=== PATIENT | female | born 2005 | race Caucasian/White ===

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

== ENCOUNTER 2025-01-27 14:16 | Emergency (ER) | payer BC, OTHER ==
[2025-01-27 14:40] VITALS: BP 121/71; PULSE 77; RESP 20; TEMP 97.5; O2SAT 100
[2025-01-27] MEDS ORDERED: Zofran 4 MG/2 ML VIAL ONE (15:07)
[2025-01-27] MEDS ORDERED: Sodium Chloride 0.9% 1000 ML 1,000 ML ONE (15:08)
[2025-01-27] MEDS: Sodium Chloride 0.9% 1000 ML 1,000 ML IV STA (15:10)
[2025-01-27] MEDS: Zofran 4 MG/2 ML VIAL IV ONE (15:11)
[2025-01-27 15:17] LABS: Absolute Neutrophil Ct (ANC) 5.41 x10^3/uL (1.56-6.13); BASOPHIL % 0.2 % (0.1-1.2); Basophil (Absolute #) 0.02 x10^3/uL (0.01-0.08); Eosinophil % 0.6 % (0.7-5.8); Eosinophil (Absolute #) 0.05 x10^3/uL (0.04-0.36); Hematocrit 34.5 % (34.1-44.9); Hemoglobin 11.9 g/dL (11.2-15.7); IMMATURE GRAN # 0.02 x10^3u/L (0.001-0.031); IMMATURE GRAN % 0.2 % (0.001-0.429); Lymphocyte (Absolute #) 2.74 x10^3/uL (1.18-3.74); Lymphocytes % 31.2 % (19.3-51.7); Mean Cell Volume 93.2 fL (79.4-94.8); Mean Corpuscular Hemoglobin 32.2 pg (25.6-32.2); Mean Corpuscular Hgb Concent. 34.5 g/dL (32.2-35.5); Mean Platelet Volume 9.2 fL (9.4-12.3); Monocyte (Absolute #) 0.54 x10^3/uL (0.24-0.86); Monocytes % 6.2 % (4.7-12.5); Neutrophil % 61.6 % (34.0-71.1); Platelet Count 258 x10^3/uL (182-369); Red Cell Distribution Width 12.8 % (11.7-14.4); White Blood Count 8.8 x10^3/uL (3.98-10.04)
[2025-01-27 15:26] LABS: Appearance Clear (Clear); Bacteria None Seen /HPF (None Seen); Bilirubin Negative (Negative); Blood Negative (Negative); Epithelial Cells None Seen /HPF (None Seen); Glucose, Urine Negative (Negative); Hyaline Casts NONE SEEN /LPF (0-2); Ketones Negative (Negative); Leukocyte Esterase Negative (Negative); Nitrite Negative (Negative); Ph 7.5 (4.6-8.0); Protein,Urine Dip Negative (Negative); RBC 0-2 /HPF (0-5); Urobilinogen 0.2 mg/dL (0.2); WBC 0-2 /HPF (0-5)
[2025-01-27 15:37] LABS: ALBUMIN 3.9 g/dL (3.5-5.0); ANION GAP 13.1 MEQ/L (5-15); BILIRUBIN,TOTAL 0.4 mg/dL (0.2-1.3); Calcium 8.9 mg/dL (8.4-10.2); Creatinine 1 0.51 mg/dL (0.52-1.04); EST GLOMERULAR FILTRATION RATE 137.8 ML/MIN; Potassium 4.3 mmol/L (3.5-5.1); Total Protein 6.4 g/dL (6.3-8.2)
--- NOTE | 2025-01-27 16:00 | ERPHSYRPT ---
- History of Present Illness Time Seen by Provider: 01/27/25 14:19 Source: patient, family Exam Limitations: no limitations Patient Subjective Stated Complaint: -16 weeks cramping Triage Nursing Assessment: Patient ambulated back to ED and transferred self to bed. Patient A+O X 3. Patient's skin pink, warm and dry. Patient states she is 16 weeks and has been having N/V for the past 2 weeks. Patient also complains of lower pelvic cramping intermittent 4/10 pain for past couple of days. Patient denies any vaginal bleeding. Physician History: 19-year-old 1 para 0 at 16 weeks gestation presented in the ER with complains of increasing nausea and vomiting for 1 week with associated pelvic cramping without any vaginal bleeding or discharge. Patient reports she did not have nausea in the first trimester but this is something new lately. Does have a history of recurrent UTIs. Allergies/Adverse Reactions: povidone-iodine [From Betadine] Allergy (Mild, Verified 01/27/25 14:26) soap [From Betadine] Allergy (Mild, Verified 01/27/25 14:26) Home Medications: Pnv No.95/Ferrous Fum/Folic AC [ Caplet] 1 tab PO DAILY 01/27/25 [History] Hx Tetanus, Diphtheria Vaccination/Date Given: Yes Hx Influenza Vaccination/Date Given: No Hx Pneumococcal Vaccination/Date Given: No Travel Risk - International Travel Have you traveled outside of the country in past 3 weeks: No - Emerging Infectious Disease Are you exhibiting symptoms associated with any current EIDs: No - Review of Systems Constitutional: Fatigue Eyes: No Symptoms Ears, Nose, & Throat: No Symptoms Respiratory: No Symptoms Cardiac: No Symptoms Abdominal/Gastrointestinal: Abdominal Pain, Nausea, Vomiting Musculoskeletal: No Symptoms Skin: No Symptoms Neurological: No Symptoms Endocrine: No Symptoms Hematologic/Lymphatic: No Symptoms - Past Medical History Pertinent Past Medical History: Yes Neurological History: Seizures ENT History: No Pertinent History Cardiac History: No Pertinent History Respiratory History: No Pertinent History Endocrine Medical History: Other Musculoskeletal History: Fractures, Other GI Medical History: GERD, Other History: Other Psycho-Social History: No Pertinent History Female Reproductive Disorders: No Pertinent History Other Medical History: kidney problems, seizures as a baby, possible history of stress fracture to left foot, bilateral damon splints, reflux of right ureter - Past Surgical History Past Surgical History: Yes Neuro Surgical History: No Pertinent History Cardiac: No Pertinent History Respiratory: No Pertinent History Gastrointestinal: No Pertinent History Genitourinary: No Pertinent History Musculoskeletal: No Pertinent History Female Surgical History: No Pertinent History Other Surgical History: EGD, colonscopy - Female History Hx Last Menstrual Period: October 01, 2024 Hx Now: Yes Gestational Age: 16 weeks - Social History Smoking Status: Never smoker Exposure to second hand smoke: No Drug Use: none - Social Determinants of Health Will the patient participate in the screening: Yes Do you worry about a steady place to live?: No Do you have any problems with any of the following?: No known problems In the past 12 months,have you had to go without utilities?: No Transportation Issues: No Has anyone in your support network made you feel unsafe?: No Have you or anyone in your house had to go w/o enough food: No - Nursing Vital Signs Nursing Vital Signs: Initial Vital Signs Temperature 97.5 F 01/27/25 14:27 Pulse Rate 77 01/27/25 14:27 Respiratory Rate 20 01/27/25 14:27 Blood Pressure 121/71 01/27/25 14:27 O2 Sat by Pulse Oximetry 100 01/27/25 14:27 Pain Scale Pain Intensity 4 - Physical Exam General Appearance: no apparent distress Eye Exam: PERRL/EOMI Ears, Nose, Throat Exam: normal ENT inspection Neck Exam: normal inspection, full range of motion Respiratory Exam: normal breath sounds, lungs clear Cardiovascular Exam: regular rate/rhythm, normal heart sounds Gastrointestinal/Abdomen Exam: soft, normal bowel sounds, No tenderness Back Exam: normal inspection, normal range of motion Extremity Exam: normal inspection, normal range of motion Neurologic Exam: alert, oriented x 3, cooperative, processing rep II-XII nml as tested Skin Exam: normal color SpO2 Interpretation: normal SpO2: 100 O2 Delivery: Room Air Ordered Tests: Active Orders 24 hr Category Date Time Status Heart Tones-ED STAT Care 01/27/25 14:53 Active OB FOLLOW UP PER [facility] [US] Stat Exams 01/27/25 15:41 Taken CBC W DIFF Stat Lab 01/27/25 14:54 Completed CMP Stat Lab 01/27/25 14:54 Completed UA W/RFX UR CULTURE Stat Lab 01/27/25 14:54 Completed Medication Summary Discontinued Medications Generic Name Dose Route Start Last Admin Trade Name Cinda PRN Reason Stop Dose Admin Sodium Chloride 1,000 mls @ 999 mls/hr 01/27/25 14:52 01/27/25 16:40 Sodium Chloride 0.9% 1000 Ml IV 01/27/25 15:52 Infused .Q1H1M STA Infusion Sodium Chloride Confirm 01/27/25 15:08 Sodium Chloride 0.9% 1000 Ml Administered 01/27/25 15:09 Dose 1,000 mls @ ud .ROUTE .STK-MED ONE Ondansetron HCl 4 mg 01/27/25 14:52 01/27/25 15:11 Ondansetron Hcl 4 Mg/2 Ml Vial IV 01/27/25 14:53 4 mg STAT ONE Administration Ondansetron HCl Confirm 01/27/25 15:07 Ondansetron Hcl 4 Mg/2 Ml Vial Administered 01/27/25 15:08 Dose 4 mg .ROUTE .STK-MED ONE Lab/Rad Data: Laboratory Result Diagrams 01/27/25 14:54 01/27/25 14:54 Laboratory Results 01/27/25 01/27/25 01/27/25 Range/Units 14:54 14:54 14:54 WBC 8.8 (3.98-10.04) x10^3/uL RBC 3.70 L (3.93-5.22) x10^6/uL Hgb 11.9 (11.2-15.7) g/dL Hct 34.5 (34.1-44.9) % MCV 93.2 (79.4-94.8) fL MCH 32.2 (25.6-32.2) pg MCHC 34.5 (32.2-35.5) g/dL RDW 12.8 (11.7-14.4) % Plt Count 258 (182-369) x10^3/uL MPV 9.2 L (9.4-12.3) fL Gran % 61.6 (34.0-71.1) % Immature Gran % (Auto) 0.2 (0.001-0.429) % Nucleat RBC Rel Count 0.0 (0.00-0.2) % Eos # (Auto) 0.05 (0.04-0.36) x10^3/uL Immature Gran # (Auto) 0.02 (0.001-0.031) x10^3u/L Absolute Lymphs (auto) 2.74 (1.18-3.74) x10^3/uL Absolute Monos (auto) 0.54 (0.24-0.86) x10^3/uL Absolute Nucleated RBC 0.00 (0.00-0.012) x10^3u/L Lymphocytes % 31.2 (19.3-51.7) % Monocytes % 6.2 (4.7-12.5) % Eosinophils % 0.6 L (0.7-5.8) % Basophils % 0.2 (0.1-1.2) % Absolute Granulocytes 5.41 (1.56-6.13) x10^3/uL Basophils # 0.02 (0.01-0.08) x10^3/uL Sodium 137 (135-145) mmol/L Potassium 4.3 (3.5-5.1) mmol/L Chloride 103 (98-107) mmol/L Carbon Dioxide 25 (22-30) mmol/L Anion Gap 13.1 (5-15) MEQ/L BUN 9 (7-17) mg/dL Creatinine 0.51 L (0.52-1.04) mg/dL Estimated GFR 137.8 ML/MIN Glucose 81 (74-106) mg/dL Calcium 8.9 (8.4-10.2) mg/dL Total Bilirubin 0.40 (0.2-1.3) mg/dL AST 22 (14-36) U/L ALT 9 (0-35) U/L Alkaline Phosphatase 61 (38-126) U/L Serum Total Protein 6.4 (6.3-8.2) g/dL Albumin 3.9 (3.5-5.0) g/dL Urine Color Yellow (Yellow) Urine Appearance Clear (Clear) Urine pH 7.5 (4.6-8.0) Ur Specific [place] 1.020 (1.005-1.030) Urine Protein Negative (Negative) Urine Glucose (UA) Negative (Negative) mg/dL Urine Ketones Negative (Negative) Urine Blood Negative (Negative) Urine Nitrite Negative (Negative) Urine Bilirubin Negative (Negative) Urine Urobilinogen 0.2 (0.2) mg/dL Ur Leukocyte Esterase Negative (Negative) U Hyaline Cast (Auto) NONE SEEN (0-2) /LPF Urine Microscopic RBC 0-2 (0-5) /HPF Urine Microscopic WBC 0-2 (0-5) /HPF Ur Epithelial Cells None Seen (None Seen) /HPF Urine Bacteria None Seen (None Seen) /HPF Urine Culture Reflexed NO (NO) - Progress Progress: improved, re-examined Air Movement: good Progress Note: 01/27/25 16:51 19-year-old 1 para 0 at 16 weeks gestation is evaluated in the ER for pelvic cramping with nausea and vomiting. She is given fluids and symptomatic treatment, on reevaluation she is feeling better. She is offered pain medication but she declined. Workup showed normal white count, chemistries unremarkable, no UTI. I have obtained ultrasound which per preliminary report has a heart tone of 144, close cervix 5.4 cm and no other acute findings. She does not have any peritoneal signs on repeated eval. No right lower quadrant tenderness. No guarding. Could have round ligament pain. She is advised to drink plenty of fluids, take Tylenol and Zofran as needed, outpatient ORDER DISPATCHER follow-up. Discussed signs symptoms of worsening needing return to ER which she seems understanding. Stable for discharge. Blood Culture(s) Obtained: No Antibiotics given: No Counseled pt/family regarding: lab results, diagnosis, need for follow-up, rad results Medical Desision Making - Independent Historian Additional History obtained from: Spouse - Diagnostic Testing Diagnostic test were ordered, analyzed, and reviewed by me: Yes Radiological Interpretation: Reviewed by me - Risk of complications The pt has a mod risk of morbidity or mortality based on: Need for prescription drug management - Departure Departure Disposition: Home Clinical Impression: Pelvic cramping in antepartum period, Nausea/vomiting in Condition: Stable Critical Care Time: No Referrals: ROBERTO CROWLEY MD [Primary Care Provider, [facility]] - Follow up with PCP 1 day Instructions: Morning sickness - ED discharge instructions Additional Instructions: Drink plenty of fluids. Take Tylenol/Zofran as needed. Follow-up with primary care/ORDER DISPATCHER for reevaluation. Return to ER for worsening cramping, vaginal bleeding discharge, intractable vomiting etc. Prescriptions: Ondansetron ODT 4 MG [Zofran Odt 4 mg] 1 ea PO QIDPRN PRN 10 Days #15 tablet PRN Reason: n/v
--- NOTE | 2025-01-27 21:33 | XRAY ---
Indication: Pelvic pain. Two-dimensional transabdominal limited OB ultrasound. Comparison: November 29, 2024 Again single viable intrauterine with heart rate 144 BPM. Anterior placenta without abruption/previa. Cervical length is 5.4 cm. Comment: Preliminary report was given.
== END 2025-01-27 17:04 | disposition home or self-care (01) ==
LOC: ED 14:16
DX: O21.9 Vomiting of pregnancy, unspecified (principal); Z3A.16 16 weeks gestation of pregnancy; R10.2 Pelvic and perineal pain; Z79.899 Other long term (current) drug therapy
CPT/HCPCS: 36415; 76816; 80053; 81001; 85025; 96361; 96374; 99284; J2405

== ENCOUNTER 2025-02-24 00:36 | Observation (INO) | payer BC, OTHER ==
[2025-02-24 01:04] VITALS: RESP 18
[2025-02-24] MEDS ORDERED: Lactated Ringers 1,000 ML IV ONE (01:04)
[2025-02-24 01:06] LABS: Appearance Clear (Clear); Bacteria Rare /HPF (None Seen); Bilirubin Negative (Negative); Blood Negative (Negative); Epithelial Cells Rare /HPF (None Seen); Glucose, Urine Negative (Negative); Hyaline Casts NONE SEEN /LPF (0-2); Ketones Trace (Negative); Leukocyte Esterase Negative (Negative); Nitrite Negative (Negative); Ph 6.5 (4.6-8.0); Protein,Urine Dip Negative (Negative); RBC 0-2 /HPF (0-5); Specific Gravity >=1.030 (1.005-1.030)
[2025-02-24 01:18] LABS: Amphetamine,Urine NEGATIVE (NEGATIVE); Barbiturate,Urine NEGATIVE (NEGATIVE); Benzodiazepine,Urine NEGATIVE (NEGATIVE); Cocaine,Urine NEGATIVE (NEGATIVE); Methadone,Urine NEGATIVE (NEGATIVE); Opiate,Urine NEGATIVE (NEGATIVE); PCP,Urine NEGATIVE (NEGATIVE); THC,Urine NEGATIVE (NEGATIVE)
[2025-02-24] MEDS ORDERED: Reglan 10 MG/2 ML ONE (01:22)
[2025-02-24] MEDS: Lactated Ringers 1,000 ML IV ONE (01:22)
[2025-02-24] MEDS: Reglan 10 MG/2 ML IV ONE (01:24)
[2025-02-24 02:21] VITALS: BP 113/57; PULSE 78; TEMP 98.1; O2SAT 100
--- NOTE | 2025-02-25 08:20 | PCM.SSS ---
History of Present Illness - Chief Complaint Chief Complaint: Nausea and vomiting in History of Present Illness: is a 19 year old female. Medications & Allergies Home Medications: Home Medication List Pnv No.95/Ferrous Fum/Folic AC [ Caplet] 1 tab PO DAILY 01/27/25 [History Confirmed 02/24/25] RX: Ondansetron ODT 4 MG [Zofran Odt 4 mg] 1 ea PO QIDPRN PRN 10 Days #15 tablet 01/27/25 [Rx Confirmed 02/24/25] Allergies/Adverse Reactions: Allergies Allergy/AdvReac Type Severity Reaction Status Date / Time povidone-iodine Allergy Mild Verified 01/27/25 14:26 [From Betadine] soap [From Betadine] Allergy Mild Verified 01/27/25 14:26 - Past Medical History Past Medical History: Yes Neurological History: Seizures ENT History: No Pertinent History Cardiac History: No Pertinent History Respiratory History: No Pertinent History Endocrine Medical History: Other Musculoskelatal History: Fractures, Other GI Medical History: GERD, Other History: Other Pyscho-Social History: No Pertinent History Reproductive Disorders: No Pertinent History Comment: kidney problems, seizures as a baby, possible history of stress fracture to left foot, bilateral damon splints, reflux of right ureter - Female History Hx Last Menstrual Period: October 01, 2024 - Past Surgical History Past Surgical History: Yes Neuro Surgical History: No Pertinent History Cardiac History: No Pertinent History Respiratory Surgery: No Pertinent History GI Surgical History: No Pertinent History Genitourinary Surgical Hx: No Pertinent History Musculskeletal Surgical Hx: No Pertinent History Female Surgical History: No Pertinent History Other Surgical History: EGD, colonscopy - Social History Smoking Status: Former smoker How long have you smoked: 1 year Exposure to second hand smoke: No Alcohol: None Drug Use: none - Social Determinants of Health Will the patient participate in the screening: Yes Do you worry about a steady place to live?: No Do you have any problems with any of the following?: No known problems In the past 12 months,have you had to go without utilities?: No Have you or anyone in your house had to go without enough: No Transportation Issues: No Has anyone in your support network made you feel unsafe?: No Does the patient want assistance with any of the above?: No Hospital Summary - Vitals & Intake/Output Vital Signs: Vital Signs Temperature 98.1 F 02/24/25 02:20 Pulse Rate 78 02/24/25 02:20 Respiratory Rate 18 02/24/25 02:20 Blood Pressure 113/57 02/24/25 02:20 O2 Sat by Pulse Oximetry 100 02/24/25 02:20 Intake & Output: Intake & Output 02/22/25 02/23/25 02/24/25 02/25/25 11:59 11:59 11:59 11:59 Intake Total 1000 Balance 1000 Weight 96.615 kg - Discharge Disposition: Home, Self-Care Condition: Stable Prescriptions: No Action Pnv No.95/Ferrous Fum/Folic AC [ Caplet] 1 tab PO DAILY RX: Ondansetron ODT 4 MG [Zofran Odt 4 mg] 1 ea PO QIDPRN PRN 10 Days #15 tablet PRN Reason: n/v Instructions: Nutrition before and during , Morning sickness, Dehydration in adults - ED discharge instructions Additional Instructions: Keep all scheduled apts. If symptoms get worse come back to hospital. Drink p lenty of fluids and continue prescribed at home meds Follow up with: ROBERTO CROWLEY MD [Primary Care Provider, [facility]ILY [facility]] Forms: OB Outpatient Discharge Inst.
== END 2025-02-24 02:34 | disposition home or self-care (01) ==
LOC: OB 00:36
PROVIDERS: ADMIT Family Medicine; ATTEND Family Medicine
DX: Z34.02 Encounter for supervision of normal first pregnancy, second trimester (principal); Z3A.20 20 weeks gestation of pregnancy
CPT/HCPCS: 80307; 81001; G0378; G0379

== ENCOUNTER 2025-05-06 23:59 | Observation (INO) | payer BC ==
[2025-05-07 00:28] VITALS: BP 123/73; PULSE 91; RESP 18; TEMP 98.1; O2SAT 100
[2025-05-07 00:28] LABS: Glucose, Urine Negative (Negative); Protein,Urine Dip Negative (Negative); RBC 0-2 /HPF (0-5); WBC 0-2 /HPF (0-5)
[2025-05-07 01:20] LABS: Amphetamine,Urine NEGATIVE (NEGATIVE); Barbiturate,Urine NEGATIVE (NEGATIVE); Benzodiazepine,Urine NEGATIVE (NEGATIVE); Cocaine,Urine NEGATIVE (NEGATIVE); Methadone,Urine NEGATIVE (NEGATIVE); Opiate,Urine NEGATIVE (NEGATIVE); PCP,Urine NEGATIVE (NEGATIVE); THC,Urine NEGATIVE (NEGATIVE)
== END 2025-05-07 01:17 | disposition home or self-care (01) ==
LOC: OB 23:59
PROVIDERS: ADMIT Family Medicine; ATTEND Family Medicine
DX: Z34.03 Encounter for supervision of normal first pregnancy, third trimester (principal); Z3A.31 31 weeks gestation of pregnancy
CPT/HCPCS: 80307; 81001; G0378; G0379

== ENCOUNTER 2025-06-24 23:49 | Observation (INO) | payer BC ==
[2025-06-25 00:39] VITALS: BP 108/56; PULSE 86; RESP 18; TEMP 98.3
== END 2025-06-25 03:40 | disposition home or self-care (01) ==
LOC: UNDOADMOB 23:49 → OB 23:49 → UNDODISOB 06-25 03:40
PROVIDERS: ADMIT Family Medicine; ATTEND Family Medicine
DX: Z34.03 Encounter for supervision of normal first pregnancy, third trimester (principal); Z3A.38 38 weeks gestation of pregnancy; Z59.82 Transportation insecurity
CPT/HCPCS: G0378; G0379

== ENCOUNTER 2025-07-07 01:01 | Inpatient (IN) | payer BC ==
[2025-07-07] MEDS ORDERED: XYLOCAINE 1% HCL 20 ML MDV IJ PRN (01:07)
[2025-07-07] MEDS ORDERED: CYTOTEC PO SCH (01:30)
[2025-07-07] MEDS ORDERED: TYLENOL EXTRA STRENGTH 500 MG PO PRN (17:00)
[2025-07-07 17:48] LABS: BASOPHIL % 0.3 % (0.1-1.2); Basophil (Absolute #) 0.04 x10^3/uL (0.01-0.08); Eosinophil (Absolute #) 0.05 x10^3/uL (0.04-0.36); Hematocrit 33.5 % (34.1-44.9); Hemoglobin 11.5 g/dL (11.2-15.7); IMMATURE GRAN # 0.05 x10^3u/L (0.001-0.031); IMMATURE GRAN % 0.4 % (0.001-0.429); Lymphocyte (Absolute #) 3.65 x10^3/uL (1.18-3.74); Mean Corpuscular Hemoglobin 32.4 pg (25.6-32.2); Mean Corpuscular Hgb Concent. 34.3 g/dL (32.2-35.5); Monocyte (Absolute #) 0.76 x10^3/uL (0.24-0.86); NUCLEATED RBC # 0.00 x10^3u/L (0.00-0.012); NUCLEATED RBC % 0.0 % (0.00-0.2); Platelet Count 257 x10^3/uL (182-369); Red Blood Count 3.55 x10^6/uL (3.93-5.22); White Blood Count 11.7 x10^3/uL (3.98-10.04)
[2025-07-07 17:57] LABS: Glucose, Urine Negative (Negative); Protein,Urine Dip Negative (Negative); RBC 0-2 /HPF (0-5); WBC 0-2 /HPF (0-5)
[2025-07-07 18:08] LABS: Amphetamine,Urine NEGATIVE (NEGATIVE); Barbiturate,Urine NEGATIVE (NEGATIVE); Benzodiazepine,Urine NEGATIVE (NEGATIVE); Cocaine,Urine NEGATIVE (NEGATIVE); Methadone,Urine NEGATIVE (NEGATIVE); Opiate,Urine NEGATIVE (NEGATIVE); PCP,Urine NEGATIVE (NEGATIVE); THC,Urine NEGATIVE (NEGATIVE)
[2025-07-07] MEDS: CYTOTEC PO SCH (18:17)
[2025-07-07 18:32] LABS: ABO TYPING O; RH TYPING POSITIVE
[2025-07-08] MEDS: STADOL 2 MG IV PRN (01:11)
[2025-07-08] MEDS ORDERED: Lactated Ringers 1,000 ML IV ONE (01:16)
[2025-07-08 05:33] LABS: AMNISURE TEST RESULTS NEGATIVE (NEGATIVE)
[2025-07-08] MEDS ORDERED: PITOCIN 30 UNITS/ LR 500 ML 30 UNITS/500 ML PLAST..BAG IV SCH (10:00)
[2025-07-08] MEDS: PITOCIN 30 UNITS/ LR 500 ML 30 UNITS/500 ML PLAST..BAG IV SCH (10:00)
[2025-07-08] MEDS ORDERED: Reglan 10 MG/2 ML ONE (11:14)
[2025-07-08] MEDS ORDERED: Pepcid 20 MG VIAL IV ONE (11:14)
[2025-07-08] MEDS ORDERED: SOD CITRATE-CITRIC ACID SOLN ONE (11:14)
[2025-07-08] MEDS ORDERED: ZITHROMAX IV IV ONE (11:15)
[2025-07-08] MEDS ORDERED: ROCEPHIN 1 GM / 100 ML NaCl 1 GM/100 ML IVPB IV ONE (11:17)
[2025-07-08] MEDS: Lactated Ringers 1,000 ML IV SCH (11:19)
[2025-07-08] MEDS: Pepcid 20 MG VIAL IV SCH (11:24)
[2025-07-08] MEDS: SOD CITRATE-CITRIC ACID SOLN PO SCH (11:24)
[2025-07-08] MEDS: Reglan 10 MG/2 ML IV SCH (11:24)
[2025-07-08] MEDS ORDERED: Astramorph-Pf 5 MG/10 ML ONE (11:27)
[2025-07-08] MEDS ORDERED: ZITHROMAX IV*** 500 MG in Sodium Chloride 0.9% 250 ML 250 ML IV SCH (11:30)
[2025-07-08] MEDS ORDERED: PHENYLEPHRINE HCL ONE (11:36)
[2025-07-08] MEDS ORDERED: Zofran 4 MG/2 ML VIAL ONE (11:36)
[2025-07-08 11:43] LABS: INR 0.94 (0.8-3.0); PROTIME 10.5 SECONDS (9.4-12.5); PTT 25.8 SECONDS (25.1-36.5)
[2025-07-08] MEDS ORDERED: Pitocin 10 UNITS/ML ONE (12:11)
[2025-07-08] MEDS ORDERED: Dulcolax 10 MG SUPP PR PRN (12:20)
[2025-07-08] MEDS ORDERED: Mylicon 80MG PO PRN (12:20)
[2025-07-08] MEDS ORDERED: Dermoplast Spray TP PRN (12:20)
[2025-07-08] MEDS ORDERED: TYLENOL EXTRA STRENGTH 500 MG PO PRN (12:20)
[2025-07-08] MEDS ORDERED: MORPHINE SULFATE 2 MG INJ IV PRN (12:24)
[2025-07-08] MEDS ORDERED: Nubain 10 MG/ML IV PRN (12:24)
[2025-07-08] MEDS ORDERED: Narcan 0.4 MG/ML IV PRN (12:24)
[2025-07-08] MEDS ORDERED: HOLD NARCOTIC ANALGESICS AND SEDATIVES X24 HR MC PRN (12:24)
[2025-07-08] MEDS ORDERED: BENADRYL 50 MG/ML IV PRN (12:24)
[2025-07-08] MEDS ORDERED: DEMEROL 50 MG IV PRN (12:24)
[2025-07-08] MEDS ORDERED: CLARITIN 10 MG PO PRN (12:24)
[2025-07-08] MEDS ORDERED: Dextrose 5%-Lr IV Solution 1000 ML 1,000 ML IV SCH (12:30)
[2025-07-08 14:29] LABS: Glucose, Urine Negative (Negative); Protein,Urine Dip Negative (Negative); RBC 0-2 /HPF (0-5)
[2025-07-08] MEDS: Zofran 4 MG/2 ML VIAL IV PRN (15:12)
[2025-07-08] MEDS: PERCOCET TABLET 5/325MG PO PRN (21:01)
[2025-07-09] MEDS: MOTRIN 400 MG PO PRN (02:54)
[2025-07-09 05:13] LABS: BASOPHIL % 0.4 % (0.1-1.2); Basophil (Absolute #) 0.05 x10^3/uL (0.01-0.08); Eosinophil (Absolute #) 0.02 x10^3/uL (0.04-0.36); Hematocrit 27.9 % (34.1-44.9); Hemoglobin 9.6 g/dL (11.2-15.7); IMMATURE GRAN # 0.06 x10^3u/L (0.001-0.031); IMMATURE GRAN % 0.4 % (0.001-0.429); Lymphocyte (Absolute #) 3.58 x10^3/uL (1.18-3.74); Mean Corpuscular Hemoglobin 32.4 pg (25.6-32.2); Mean Corpuscular Hgb Concent. 34.4 g/dL (32.2-35.5); Monocyte (Absolute #) 0.90 x10^3/uL (0.24-0.86); NUCLEATED RBC # 0.00 x10^3u/L (0.00-0.012); NUCLEATED RBC % 0.0 % (0.00-0.2); Platelet Count 196 x10^3/uL (182-369); Red Blood Count 2.96 x10^6/uL (3.93-5.22); White Blood Count 14.2 x10^3/uL (3.98-10.04)
[2025-07-09] MEDS: Docusate Sodium 100 MG PO SCH (09:18)
[2025-07-09] MEDS: FERREX 150 PO SCH (09:18)
--- NOTE | 2025-07-09 11:13 | OP ---
SURGERY DATE/TIME: 07/08/2025 [id number] PREOPERATIVE DIAGNOSES: 1) Nonreassuring heart tones. 2) Term intrauterine . POSTOPERATIVE DIAGNOSES: 1) Nonreassuring heart tones. 2) Term intrauterine . PROCEDURE: Primary low transverse section. SURGEON: Kamron Solorzano MD ANESTHESIA: Spinal by Gilberto Hartmann CRNA. QUANTITATIVE BLOOD LOSS: 717 mL. URINE: 50 mL of clear straw-colored urine. SPECIMENS: Placenta was sent for pathology and cord gas. DESCRIPTION OF PROCEDURE AND FINDINGS: After informed written consent was obtained, the patient was taken to the operating room. She was here for elective induction of labor, had persistent decelerations and intolerance of labor, unable to continue Pitocin, therefore, she was consented for primary . She was prepped and draped in the usual sterile fashion after she underwent spinal anesthesia and a Alonzo catheter was inserted. After adequate level of anesthesia was assessed, a low transverse skin incision was made by knife, carried down through the subcutaneous fat to the level of the fascia, was nicked on both sides of the midline. Fascial incision was then extended into horizontal using curved Lemos scissors. Superior free edge of the fascia was grasped with Landen clamps and the underlying rectus muscles were dissected free. Same was repeated inferiorly. Next, the peritoneal cavity was entered with blunt dissection, extended into horizontal, then a bladder blade was inserted. Bladder flap was created and a low transverse uterine incision was made by knife, carried down to the level of the amniotic membranes which were carefully artificially ruptured and revealed clear fluid. Male was delivered from the vertex presentation with meconium passed on the operative field. He did have a cry shortly after but delayed respiratory effort and a mild decrease in tone, therefore, cord was clamped and cut and he was immediately handed off to the waiting nursery team. Then, the placenta was manually extracted and uterus was exteriorized. Uterine cavity was sponge curetted clean with lap sponge. Net, the uterine incision was closed with #1 chromic in a running locked fashion with good hemostasis and closure achieved at that level. Incision was noted to be hemostatic. Posterior cul-de-sac was suctioned and wiped free of blood and clot with a moist lap sponge, then the uterus was returned to the peritoneal cavity. Lateral gutters were wiped free of blood and clot with moist lap sponges. Uterine incision was carefully inspected and noted to be hemostatic with good closure at that level. Next, the fascia was closed with 0 Vicryl in a running fashion. Good closure and good hemostasis were achieved at that level. Subcutaneous fat was irrigated with warm sterile saline. Any areas of bleeding were cauterized with electrocautery. Finally, the skin layer was closed with 4-0 undyed Vicryl in a running subcuticular fashion. Steri-Strips and an occlusive dressing were placed over the incision, and the patient was transferred to the recovery room in good condition.
[2025-07-09] MEDS: LANSINOH 40 GM TOP PRN (11:44)
[2025-07-09] MEDS: NORCO 5/325 MG PO PRN (12:58)
[2025-07-09 15:31] LABS: RPR Non Reactive (Non Reactive)
[2025-07-09 21:41] VITALS: O2SAT 98
[2025-07-10 03:06] VITALS: RESP 18
[2025-07-10 08:32] VITALS: BP 116/54; PULSE 81; TEMP 97.7
--- NOTE | 2025-07-10 09:43 | PCM.DS ---
Discharge Summary Date of Admission: 07/08/25 10:00 Admitting Physician: KAREN RUVALCABA DO Consults: Consults on Case 07/08/25 12:24 Notify Anesthesia Provider PRN Primary Care Provider: ROBERTO CROWLEY SAGAR Allergies Allergies povidone-iodine [From Betadine] Allergy (Mild, Verified 06/02/25 15:39) soap [From Betadine] Allergy (Mild, Verified 06/02/25 15:39) Hospital Summary - Hospital Course Hospital Course: patient was admitted at 39 6/7 for elective induction, nonreassuring heart tones during beginning of induction lead to a primary . patient is doing great postop, pain controlled with norco, ambulating, mild lochia, voiding and tolerating po intake without difficulty. - Vitals & Intake/Output Vital Signs: Vital Signs Temperature 97.7 F 07/10/25 08:31 Pulse Rate 81 07/10/25 08:31 Respiratory Rate 18 07/10/25 08:31 Blood Pressure 116/54 07/10/25 08:31 O2 Sat by Pulse Oximetry 98 07/10/25 03:05 Intake & Output: Intake & Output 07/07/25 07/08/25 07/09/25 07/10/25 11:59 11:59 11:59 11:59 Intake Total 240 1200 Output Total 100 700 Balance 140 -700 1200 Weight 109.769 kg 109.769 kg - Lab Result Diagrams: 07/09/25 04:55 Lab Results-Last 24 Hrs: Lab Results-Last 24 Hours 07/07/25 Range/Units 17:35 RPR Non Reactive (Non Reactive) Micro Results-Entire Visit: Microbiology 07/08/25 12:20 Urine Culture - Final Urine, Catheterized NO GROWTH Discharge Exam General Appearance: no apparent distress, obese Neurologic Exam: alert, oriented x 3 Respiratory Exam: normal breath sounds, lungs clear, No respiratory distress Cardiovascular Exam: regular rate/rhythm, normal heart sounds Gastrointestinal/Abdomen Exam: soft, other (optifoam dressing clean,dry, intact) Extremity Exam: normal inspection, normal range of motion Skin Exam: normal color, warm, dry Final Diagnosis/Problem List - Final Discharge Diagnosis/Problem (1) delivery delivered Current Visit: Yes Status: Acute Code(s): O82 - ENCOUNTER FOR DELIVERY WITHOUT INDICATION (2) () Current Visit: Yes Status: Acute Code(s): Z78.9 - OTHER SPECIFIED HEALTH STATUS - Discharge Disposition: Home, Self-Care Condition: Stable Prescriptions: New Docusate Sodium 100 mg [Docusate Sodium 100 MG] 100 mg PO BID #30 cap Hydrocodone/Acetaminophen [Hydrocodone-Acetamin 5-325 mg] 1 tab PO Q6HPRN PRN #28 tablet MDD 4 PRN Reason: Pain Continue Pnv No.95/Ferrous Fum/Folic AC [ Caplet] 1 tab PO DAILY Follow up with: ROBERTO CROWLEY MD [Primary Care Provider, [facility]ILY [facility]ACTICE] - 1 Week
[2025-07-10] MEDS: Adacel Vial IM ONE (10:14)
== END 2025-07-10 15:00 | disposition home or self-care (01) | DRG 788 ==
LOC: OB 10:00 → OBSVTOIN 07-08 10:00
PROVIDERS: ADMIT Obstetrics & Gynecology; ATTEND Obstetrics & Gynecology
PROC: 10D00Z1 Extraction of Products of Conception, Low, Open Approach (ICD-10-PCS; principal; 2025-07-08)
DX: O76 Abnormality in fetal heart rate and rhythm complicating labor and delivery (principal); Z3A.39 39 weeks gestation of pregnancy; Z37.0 Single live birth